=== PATIENT | male | born 1970 | race Caucasian/White ===

== ENCOUNTER 2017-12-10 17:41 | Emergency (ER) | payer OTHER ==
[~2017-12-10] VITALS: Ht 190.5 cm; Wt 75.0 kg
[2017-12-10 17:46] VITALS: BP 133/83
[2017-12-10] MEDS ORDERED: DIPH,PERTUSS(ACELL),TET VAC/PF 0.5 ML IM-VACC ONE ×2 (18:30)
[2017-12-10] MEDS ORDERED: HYDROcodone/APAP 5/325 TABLET ONE (19:29)
[2017-12-10] MEDS ORDERED: LIDOCAINE-MPF 2% ,5ML ONE (19:29)
[2017-12-10] MEDS ORDERED: LIDOCAINE 2%, 10ML INFIL ONE (19:30)
[2017-12-10] MEDS ORDERED: IBUPROFEN 200 MG TABLET ONE (20:15)
[2017-12-10] MEDS ORDERED: HYDROcodone/APAP 5/325 TABLET PO ONE (20:30)
== END 2017-12-10 20:58 | disposition home or self-care (01) ==
LOC: ED 20:52
DX: S91.312A Laceration without foreign body, left foot, initial encounter (principal); S90.02XA Contusion of left ankle, initial encounter; F17.200 Nicotine dependence, unspecified, uncomplicated; W20.8XXA Other cause of strike by thrown, projected or falling object, initial encounter; Y93.89 Activity, other specified; Y92.828 Other wilderness area as the place of occurrence of the external cause; Y99.8 Other external cause status
CPT/HCPCS: 12002; 29515; 90715; 96372; 99284

== ENCOUNTER 2019-03-29 11:21 | Inpatient (IN) | payer OTHER ==
[~2019-03-29] VITALS: Ht 190.5 cm; Wt 74.2 kg
[2019-03-29] MEDS ORDERED: ASPIRIN 325 MG TABLET PO STA (11:33)
[2019-03-29] MEDS ORDERED: LIDOCAINE 1%, 20ML ONE (11:45)
[2019-03-29] MEDS ORDERED: TICAGRELOR 90 MG TABLET ONE ×2 (11:45→12:22)
[2019-03-29] MEDS ORDERED: BIVALIRUDIN 250 MG ONE ×2 (11:45→12:37)
--- NOTE | 2019-03-29 11:47 | NUR ---
LATE ENTRY: PT BIB [facility] FOR EKG SHOWING STEMI, PT STATES CP SINCE FRIDAY THAT HAS DECREASED IN SEVERITY OVER LAST FEW DAYS BUT STILL HAS PRESSURE ON CHEST. N/V WITH DIAPHORIESIS YESTERDAY. 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 PT ARRIVED TO ER @1120, CONNECTED TO MONITORING, EKG DONE IMMEDICATELY, ER MD AND CIGAR MAKING SUPERVISOR AT BEDSIDE FOR ASSESSMENT. PT UNDRESSED COMPLETELY, ALL BELONGINGS INTO ONE BAG, LABLED AND TAKEN WITH PT. LABS COLLECTED. RAD COMPLETED. CONSENT SIGNED FOR CATH, PT AND FAMILY EDUCATED. FLUIDS RUNNING, PT PLACED ON SUP O2. PADS ON PT. TAKEN TO AIRWAY TRAFFIC CONTROLLER.
[2019-03-29] MEDS ORDERED: FENTANYL PF 100 MCG/2ML ONE ×2 (11:52→12:48)
[2019-03-29] MEDS ORDERED: MIDAZOLAM 1 MG/ML, 2ML ONE ×2 (11:52→12:48)
[2019-03-29 11:53] LABS: INTERNATIONAL NORMALIZED RATIO 1.05 (0.93-1.1)
[2019-03-29] MEDS ORDERED: NITROGLYCERIN SINGLE TAB 0.4 MG SL PRN (12:00)
[2019-03-29] MEDS ORDERED: BISACODYL 5 MG EC TABLET PO PRN (12:00)
[2019-03-29] MEDS ORDERED: ONDANSETRON 2MG/ML, 2ML IV PRN (12:00)
[2019-03-29] MEDS ORDERED: ACETAMINOPHEN 650 MG/20.3 ML UDC PO PRN (12:00)
[2019-03-29] MEDS ORDERED: ZOLPIDEM 5MG TABLET PO PRN (12:00)
[2019-03-29 12:14] LABS: BASOPHILS # (AUTO) 0.12 x10^3/uL (0-0.1); BASOPHILS % (AUTO) 1 % (0-1); EOSINOPHILS # (AUTO) 0.07 x10^3/uL (0-0.4); EOSINOPHILS % (AUTO) 1 % (1-7); LYMPHOCYTES # (AUTO) 1.49 x10^3/uL (1-3.4); LYMPHOCYTES % (AUTO) 10 % (22-44); MD NO; MEAN CORPUSCULAR HEMOGLOBIN 32.3 pg (27.5-34.5); MEAN CORPUSCULAR HGB CONC 33.7 g/dL (33.2-36.2); MEAN PLATELET VOLUME 8.1 fL (7.4-10.4); MONOCYTES # (AUTO) 1.44 x10^3/uL (0.2-0.8); MONOCYTES % (AUTO) 10 % (2-9); NEUTROPHILS # (AUTO) 11.27 x10^3/uL (1.8-6.8); NEUTROPHILS % (AUTO) 78 % (42-75); PLATELET COUNT 181 x10^3/uL (130-400); RED BLOOD COUNT 4.77 x10^6/uL (4.38-5.82); RED CELL DISTRIBUTION WIDTH 13.3 % (9.4-14.8)
[2019-03-29] MEDS: SODIUM CHLORIDE 0.9% 1,000 ML IV SCH ×2 (12:26→19:23)
[2019-03-29] MEDS ORDERED: BIVALIRUDIN 250 MG in SODIUM CHLORIDE 0.9% 50 ML IV SCH (12:26)
[2019-03-29] MEDS ORDERED: LIDOCAINE-MPF 1%, 5ML ONE (12:48)
[2019-03-29] MEDS ORDERED: VERAPAMIL 2.5 MG/ML, 2ML ONE (12:48)
[2019-03-29] MEDS: ATORVASTATIN 80 MG TABLET PO SCH (19:57)
[2019-03-29] MEDS: TICAGRELOR 90 MG TABLET PO SCH (19:57)
[2019-03-29] MEDS: SODIUM CHLORIDE FLUSH 10ML SYR IVF SCH (19:59)
[2019-03-29 20:15] VITALS: BP 106/75
[2019-03-29 20:47] VITALS: BP 114/84
[2019-03-30] MEDS ORDERED: CYCLOBENZAPRINE 10 MG TABLET PO ONE
[2019-03-30 00:04] VITALS: BP 110/83
[2019-03-30 04:07] VITALS: BP 105/67
[2019-03-30] MEDS: SODIUM CHLORIDE 0.9% 1,000 ML IV SCH ×2 (04:26→08:08)
[2019-03-30 04:36] LABS: ANION GAP 3 mmol/L (5-15); CALCIUM 8.4 mg/dL (8.5-10.1); CHLORIDE 107 mmol/L (98-107); CHOLESTEROL, TOTAL 154 mg/dL (140-239); CREATININE 1.09 mg/dL (0.7-1.3); TRIGLYCERIDES 115 mg/dL (50-200); VLDL CHOLESTEROL 23 mg/dL (0-25)
[2019-03-30 04:38] LABS: HDL CHOL % 20 % (26-37); HDL CHOLESTEROL (DIRECT) 31 mg/dL (40-60); LDL CHOLESTEROL,CALCULATED 100 mg/dL (54-169); LDL/HDL RATIO 3.2 (0.5-3.0)
[2019-03-30 05:18] LABS: HEMOGLOBIN A1C 5.2 % (4.2-6.3)
[2019-03-30] MEDS: SODIUM CHLORIDE FLUSH 10ML SYR IVF SCH ×2 (08:08→19:59)
[2019-03-30] MEDS: ASPIRIN 81 MG TABLET EC PO SCH (08:08)
[2019-03-30] MEDS: TICAGRELOR 90 MG TABLET PO SCH ×2 (08:08→19:50)
[2019-03-30] MEDS ORDERED: CYCLOBENZAPRINE 10 MG TABLET PO PRN (08:30)
[2019-03-30] MEDS ORDERED: CARVEDILOL 3.125 MG TABLET PO SCH (08:30)
[2019-03-30 13:25] VITALS: BP 116/78
[2019-03-30 19:10] VITALS: BP 110/75
[2019-03-30 19:43] VITALS: BP 120/82
[2019-03-30] MEDS: ATORVASTATIN 80 MG TABLET PO SCH (19:50)
[2019-03-30] MEDS: CAPTOPRIL 12.5 MG TABLET PO SCH (19:50)
[2019-03-31 03:25] VITALS: BP 110/72
[2019-03-31 05:14] VITALS: BP 117/78
[2019-03-31] MEDS ORDERED: METOPROLOL SUCCINATE 25 MG TAB.ER.24H PO SCH (06:00)
[2019-03-31 07:17] VITALS: BP 101/68
[2019-03-31] MEDS: ASPIRIN 81 MG TABLET EC PO SCH (08:02)
[2019-03-31] MEDS: SODIUM CHLORIDE FLUSH 10ML SYR IVF SCH (08:02)
[2019-03-31] MEDS: TICAGRELOR 90 MG TABLET PO SCH (08:02)
[2019-03-31] MEDS: CAPTOPRIL 12.5 MG TABLET PO SCH (08:03)
[2019-03-31] MEDS ORDERED: NITR0.4T41 SL (11:31)
[2019-03-31] MEDS ORDERED: CAPT12.52 PO (11:31)
[2019-03-31] MEDS ORDERED: ASPI81TA45 PO (11:31)
[2019-03-31] MEDS ORDERED: ATOR-2 PO (11:31)
[2019-03-31] MEDS ORDERED: TICA90TA PO (11:31)
[2019-03-31] MEDS ORDERED: METO25TA91 PO (11:31)
[2019-03-31 12:00] VITALS: BP 109/75
== END 2019-03-31 13:50 | disposition home or self-care (01) | DRG 246 ==
LOC: ED 11:41 → EDIP 11:42 → CCU 12:47 → 5SO 03-30 10:59 → DCLOUNGE 03-31 13:30
PROVIDERS: ADMIT Internal Medicine Cardiovascular Disease; ATTEND Internal Medicine Cardiovascular Disease
PROC: 027036Z Dilation of Coronary Artery, One Artery with Three Drug-eluting Intraluminal Devices, Percutaneous Approach (ICD-10-PCS; principal; 2019-03-29)
PROC: 4A023N7 Measurement of Cardiac Sampling and Pressure, Left Heart, Percutaneous Approach (ICD-10-PCS; 2019-03-29)
PROC: B2111ZZ Fluoroscopy of Multiple Coronary Arteries using Low Osmolar Contrast (ICD-10-PCS; 2019-03-29)
DX: I21.19 ST elevation (STEMI) myocardial infarction involving other coronary artery of inferior wall (principal); I50.43 Acute on chronic combined systolic (congestive) and diastolic (congestive) heart failure; I25.10 Atherosclerotic heart disease of native coronary artery without angina pectoris; E78.5 Hyperlipidemia, unspecified; I25.5 Ischemic cardiomyopathy; Z72.0 Tobacco use; Z95.5 Presence of coronary angioplasty implant and graft
CPT/HCPCS: 36415; 93454; 99285; J3490; 71045; 80047; 80048; 80061; 83036; 84484; 85025; 85610; 85730; 87081; 93005; 93306; 99156; 99157; C1760; C1769; C1894; G0378; J0583; J2250; J3010; C1725; C1874; C1887; Q9967

== ENCOUNTER 2019-10-16 23:58 | Inpatient (IN) | payer OTHER ==
[~2019-10-16] VITALS: Ht 190.5 cm; Wt 76.2 kg
[~2019-10-16 23:58] MED LIST: ASPI81TA45 PO; ATOR-2 PO; CAPT12.52 PO; METO25TA91 PO; NITR0.4T41 SL; TICA90TA PO
[2019-10-17] MEDS ORDERED: AMIODARONE 50 MG/ML, 3ML ONE ×2 (00:16→00:33)
[2019-10-17] MEDS ORDERED: AMIODARONE 150 MG in DEXTROSE 5% 97 ML IV ONE ×2 (00:16→00:37)
[2019-10-17] MEDS ORDERED: AMIODARONE 450 MG in DEXTROSE 5% 241 ML IV PRN (00:16)
[2019-10-17] MEDS ORDERED: ASPIRIN 81 MG TABLET CHEW ONE (00:20)
--- NOTE | 2019-10-17 00:22 | NUR ---
per give amio 150mg now ivp. med given slowly.
--- NOTE | 2019-10-17 00:26 | NUR ---
pt stated "he awoke around 0400 today with chest pressure and heart racing, he thought it would go away and it did not so he came in to er." pt stated "he has never had heart racing but has had stents"
[2019-10-17] MEDS ORDERED: SODIUM CHLORIDE FLUSH 10ML SYR IVF ONE (00:30)
[2019-10-17] MEDS ORDERED: ASPIRIN 81 MG TABLET CHEW PO ONE (00:30)
[2019-10-17] MEDS ORDERED: SODIUM CHLORIDE 0.9% 1,000ML IVBOLUS ONE (00:30)
[2019-10-17] MEDS ORDERED: FILTER 0.22 MICRON IV ONE (00:30)
[2019-10-17 00:35] LABS: BASOPHILS # (AUTO) 0.09 x10^3/uL (0-0.1); BASOPHILS % (AUTO) 1 % (0-1); EOSINOPHILS # (AUTO) 0.19 x10^3/uL (0-0.4); EOSINOPHILS % (AUTO) 2 % (1-7); LYMPHOCYTES # (AUTO) 2.93 x10^3/uL (1-3.4); LYMPHOCYTES % (AUTO) 23 % (22-44); MD NO; MEAN CORPUSCULAR HEMOGLOBIN 31.4 pg (27.5-34.5); MEAN CORPUSCULAR VOLUME 95.1 fL (81-97); MEAN PLATELET VOLUME 8.4 fL (7.4-10.4); MONOCYTES # (AUTO) 0.64 x10^3/uL (0.2-0.8); MONOCYTES % (AUTO) 5 % (2-9); NEUTROPHILS # (AUTO) 8.98 x10^3/uL (1.8-6.8); NEUTROPHILS % (AUTO) 70 % (42-75); PLATELET COUNT 215 x10^3/uL (130-400); RED BLOOD COUNT 5.09 x10^6/uL (4.38-5.82); RED CELL DISTRIBUTION WIDTH 14.2 % (9.4-14.8)
[2019-10-17 00:41] LABS: ALBUMIN 3.8 g/dL (3.4-5.0); ANION GAP 5 mmol/L (5-15); CALCIUM 8.9 mg/dL (8.5-10.1); CHLORIDE 108 mmol/L (98-107)
--- NOTE | 2019-10-17 00:45 | NUR ---
SECOND DOSE OF 150MG AMIODARONE GIVEN SLOW IVP PER MD ORDER AT BEDSIDE.
[2019-10-17 00:47] LABS: ALANINE AMINOTRANSFERASE 33 U/L (12-78); ALKALINE PHOSPHATASE 78 U/L (45-117); BILIRUBIN,TOTAL 0.3 mg/dL (0.2-1.0); CREATININE 1.35 mg/dL (0.7-1.3); TOTAL PROTEIN 7.4 g/dL (6.4-8.2); TROPONIN I 0.088 ng/mL (0.000-0.045)
--- NOTE | 2019-10-17 00:50 | NUR ---
Pt prepared for emergent cardioversion as becoming hypotensive, symptomatic
[2019-10-17] MEDS ORDERED: ONDANSETRON 2MG/ML, 2ML ONE (00:53)
--- NOTE | 2019-10-17 00:55 | NUR ---
ETOMIDATE 10MG GIVEN, NOT 20MG CHARTED EARLIER
--- NOTE | 2019-10-17 00:55 | NUR ---
pt sedated with 20mg etomidate iv and cardioverted with 200j. Rate drops to 60-70's, pt require some assist with airway, pt being assisted with ambu by JStarrRN and airway positioning. Repeat EKG done at this time. Pt remain altered and having difficult time staying still at htis time, non verbal. Dr Deng remains at bedside. Remains SR rate 64 at this time.
[2019-10-17] MEDS ORDERED: ADENOSINE 6 MG/2 ML ONE (00:56)
[2019-10-17] MEDS ORDERED: ETOMIDATE 20 MG/10 ML ONE (00:57)
[2019-10-17] MEDS ORDERED: ETOMIDATE 20 MG/10 ML IV ONE (01:00)
--- NOTE | 2019-10-17 01:19 | NUR ---
AMIODARONE GTT STOPPED PER MD VERBAL ORDER.
--- NOTE | 2019-10-17 01:26 | NUR ---
PT NOW AWAKENS TO THIS RN ENTERING THE ROOM. PT STATES HE FEELS MUCH BETTER. POC DISCUSSED. PT AGREEABLE TO ADMISSION. PT PLACED IN POSITION OF COMFORT. PT DENIES CURRENT NEEDS.
--- NOTE | 2019-10-17 01:37 | NUR ---
10MG ETOMIDATE WASTED WITH CRISTOFER ALMENDAREZ.
--- NOTE | 2019-10-17 01:37 | NUR ---
ADMITTING MD AT BEDSIDE.
--- NOTE | 2019-10-17 01:52 | NUR ---
CALLED PER PTS REQUEST AND UPDATED HER ON POC. SHE WILL CALL BACK IN THE MORNING TO CHECK ON HIM.
[2019-10-17] MEDS ORDERED: morphine SULFATE 10 MG/ML, 1ML IVPush PRN (02:00)
[2019-10-17] MEDS ORDERED: DOCUSATE 100 MG CAPSULE PO PRN (02:00)
[2019-10-17] MEDS ORDERED: ACETAMINOPHEN 325 MG TABLET PO PRN (02:00)
[2019-10-17] MEDS ORDERED: ONDANSETRON 2MG/ML, 2ML IVPush ONE (02:00)
[2019-10-17] MEDS ORDERED: ONDANSETRON ODT 4 MG PO PRN (02:00)
[2019-10-17] MEDS ORDERED: NITROGLYCERIN SINGLE TAB 0.4 MG SL PRN (02:00)
[2019-10-17 02:06] VITALS: BP 113/78
[2019-10-17] MEDS: METOPROLOL SUCCINATE 25 MG TAB.ER.24H PO SCH (05:01)
[2019-10-17 06:42] LABS: TROPONIN I 0.143 ng/mL (0.000-0.045)
[2019-10-17 07:20] VITALS: BP 110/74
[2019-10-17] MEDS: ASPIRIN 81 MG TABLET EC PO SCH (09:05)
[2019-10-17] MEDS: TICAGRELOR 90 MG TABLET PO SCH ×2 (09:05→21:36)
[2019-10-17] MEDS: CAPTOPRIL 12.5 MG TABLET PO SCH ×2 (09:05→21:37)
[2019-10-17] MEDS ORDERED: SODIUM CHLORIDE 0.9% 1,000 ML IV SCH (11:00)
[2019-10-17 12:32] LABS: TROPONIN I 0.159 ng/mL (0.000-0.045)
[2019-10-17 13:23] VITALS: BP 111/71
[2019-10-17] MEDS ORDERED: ATORVASTATIN 80 MG TABLET PO SCH (21:00)
[2019-10-17 21:35] VITALS: BP 135/82
[2019-10-18 02:10] VITALS: BP 116/79
[2019-10-18 05:18] LABS: BASOPHILS # (AUTO) 0.04 x10^3/uL (0-0.1); BASOPHILS % (AUTO) 1 % (0-1); EOSINOPHILS # (AUTO) 0.14 x10^3/uL (0-0.4); EOSINOPHILS % (AUTO) 2 % (1-7); LYMPHOCYTES # (AUTO) 1.77 x10^3/uL (1-3.4); LYMPHOCYTES % (AUTO) 26 % (22-44); MD NO; MEAN CORPUSCULAR HEMOGLOBIN 31.3 pg (27.5-34.5); MEAN CORPUSCULAR VOLUME 94.8 fL (81-97); MEAN PLATELET VOLUME 8.4 fL (7.4-10.4); MONOCYTES % (AUTO) 7 % (2-9); NEUTROPHILS # (AUTO) 4.47 x10^3/uL (1.8-6.8); NEUTROPHILS % (AUTO) 65 % (42-75); PLATELET COUNT 163 x10^3/uL (130-400); RED BLOOD COUNT 4.39 x10^6/uL (4.38-5.82); RED CELL DISTRIBUTION WIDTH 13.6 % (9.4-14.8)
[2019-10-18 05:24] LABS: ANION GAP 6 mmol/L (5-15); CALCIUM 8.4 mg/dL (8.5-10.1); CHLORIDE 111 mmol/L (98-107)
[2019-10-18 05:26] LABS: CREATININE 1.16 mg/dL (0.7-1.3)
[2019-10-18 06:57] VITALS: BP 122/71
[2019-10-18] MEDS: METOPROLOL SUCCINATE 25 MG TAB.ER.24H PO SCH (07:46)
[2019-10-18] MEDS: ASPIRIN 81 MG TABLET EC PO SCH (08:37)
[2019-10-18] MEDS: TICAGRELOR 90 MG TABLET PO SCH (08:37)
[2019-10-18] MEDS: CAPTOPRIL 12.5 MG TABLET PO SCH (08:38)
[2019-10-18 13:17] VITALS: BP 125/82
== END 2019-10-18 15:06 | disposition left against medical advice (07) | DRG 309 ==
LOC: ED 10-17 01:19 → EDIP 10-17 01:25 → 5SO 10-17 02:01
PROVIDERS: ADMIT Family Medicine; ATTEND Family Medicine
PROC: 5A2204Z Restoration of Cardiac Rhythm, Single (ICD-10-PCS; principal; 2019-10-17)
DX: I47.2 Ventricular tachycardia (principal); I24.8 Other forms of acute ischemic heart disease; D72.829 Elevated white blood cell count, unspecified; E78.5 Hyperlipidemia, unspecified; F17.210 Nicotine dependence, cigarettes, uncomplicated; I25.2 Old myocardial infarction; Z95.5 Presence of coronary angioplasty implant and graft; I25.10 Atherosclerotic heart disease of native coronary artery without angina pectoris; Z82.49 Family history of ischemic heart disease and other diseases of the circulatory system
CPT/HCPCS: 36415; 71045; 80048; 80053; 83735; 84100; 84484; 85025; 93005; 96365; 96368; 96375; G0378; J2405; J7060; J0282; J7030

== ENCOUNTER 2019-10-28 10:40 | Day surgery (SDC) | payer OTHER ==
[~2019-10-28] VITALS: Ht 190.5 cm; Wt 75.0 kg
[2019-10-28] MEDS ORDERED: SODIUM CHLORIDE 0.9% 1,000 ML IV SCH ×2 (10:54→13:24)
[2019-10-28 10:55] VITALS: BP 132/78
[2019-10-28] MEDS ORDERED: FENTANYL PF 100 MCG/2ML ONE (11:28)
[2019-10-28] MEDS ORDERED: BIVALIRUDIN 250 MG ONE (11:28)
[2019-10-28] MEDS ORDERED: LIDOCAINE-MPF 1%, 5ML ONE (11:28)
[2019-10-28] MEDS ORDERED: HEPARIN 1,000 UNITS/ML, 10ML ONE (11:28)
[2019-10-28] MEDS ORDERED: VERAPAMIL 2.5 MG/ML, 2ML ONE (11:28)
[2019-10-28] MEDS ORDERED: TICAGRELOR 90 MG TABLET ONE (11:28)
[2019-10-28] MEDS ORDERED: MIDAZOLAM 1 MG/ML, 5ML ONE (11:28)
== END 2019-10-28 14:48 | disposition home or self-care (01) ==
LOC: CACL 10:40
PROVIDERS: ATTEND Internal Medicine Cardiovascular Disease
DX: R07.89 Other chest pain (principal); I25.10 Atherosclerotic heart disease of native coronary artery without angina pectoris; I10 Essential (primary) hypertension; I47.2 Ventricular tachycardia; I25.2 Old myocardial infarction; I43 Cardiomyopathy in diseases classified elsewhere; E78.5 Hyperlipidemia, unspecified; F17.210 Nicotine dependence, cigarettes, uncomplicated; Z79.02 Long term (current) use of antithrombotics/antiplatelets; Z79.82 Long term (current) use of aspirin; Z79.899 Other long term (current) drug therapy; Z95.5 Presence of coronary angioplasty implant and graft
CPT/HCPCS: 93458; 93571; 99156; 99157; C1769; C1887; C1894; J1644; J2250; J3010; Q9967; J0583